=== PATIENT | male | born 1965 | race Hispanic/Latino ===

== ENCOUNTER → 2023-08-29 | Outpatient (CLI) | payer OTHER ==
[2023-08-29 22:20] VITALS: PULSE 68; RESP 18
[2023-08-29 23:00] VITALS: PULSE 74; RESP 10
[2023-08-29 23:30] VITALS: PULSE 64; RESP 10
[2023-08-30] VITALS (11 sets, daily range): PULSE 60–70; RESP 4–20
== END | disposition home or self-care (01) ==
LOC: SLP 20:37
PROVIDERS: ATTEND Internal Medicine Cardiovascular Disease
DX: G47.33 Obstructive sleep apnea (adult) (pediatric) (principal); R06.83 Snoring
CPT/HCPCS: 95810

== ENCOUNTER → 2023-10-08 | Outpatient (CLI) | payer OTHER ==
[2023-10-08 21:53] VITALS: PULSE 68; RESP 16
[2023-10-08 22:30] VITALS: PULSE 60; RESP 8
[2023-10-08 23:00] VITALS: PULSE 62; RESP 20
[2023-10-08 23:30] VITALS: PULSE 62; RESP 6
[2023-10-09] VITALS (11 sets, daily range): PULSE 58–68; RESP 10–18
== END | disposition home or self-care (01) ==
LOC: SLP 20:24
PROVIDERS: ATTEND Internal Medicine Cardiovascular Disease
DX: G47.33 Obstructive sleep apnea (adult) (pediatric) (principal)
CPT/HCPCS: 95811